=== PATIENT | female | born 2000 | race Asian ===

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

== ENCOUNTER 2024-03-08 11:53 | Outpatient (CLI) | payer OTHER ==
--- NOTE | 2024-03-08 23:23 | Ultrasound Report ---
PROCEDURE: Soft Tissue Head or Neck INDICATIONS: POSTERIOR SCALP - SKIN LESION TECHNIQUE: Real-time scanning was performed of the scalp, with image documentation. COMPARISON: None FINDINGS: Focused ultrasound examination of posterior scalp at patient's reported area of palpable lump shows a 7 x 4 x 6 mm echogenic focus within subcutaneous soft tissue and show no internal vascularity. IMPRESSION: Nonspecific echogenic and solid appearing nodule in posterior scalp and show no internal vascularity. Finding may represent a small sebaceous cyst or other soft tissue nodule. Clinical maxim elation and follow-up is recommended. Reviewed by: Huy Paulson MD on 03/08/2024 11:22 PM PDT Approved by: Huy Paulson MD on 03/08/2024 11:22 PM PDT Station ID: [id number]
== END 2024-03-08 11:54 | disposition home or self-care (01) ==
LOC: DI 11:53
PROVIDERS: ATTEND Internal Medicine
DX: R22.0 Localized swelling, mass and lump, head (principal)